=== PATIENT | female | born 1985 | race American Indian/Alaskan Native ===

== ENCOUNTER 2017-03-17 16:27 | Emergency (ER) | payer OTHER ==
[2017-03-17 16:45] VITALS: RESP 16; TEMP 98.6; O2SAT 99; BMI 25.0
--- NOTE | 2017-03-17 17:00 | ED PDOC ---
Arrival/HPI - General Chief Complaint: Trauma Time Seen by Provider: 03/17/17 16:56 Historian: Patient - History of Present Illness Narrative History of Present Illness (Text): 03/17/17 16:59 31 y/o female, no significant pmh, nkda, c/o lower back pain x 2 days. Pt. stated that she was sitting on the stool about 2-3 feets tall, slipped and fall to the lt. buttock region against the wooden floor, been having lt. gluteal pain and lower back/coccyx pain, no hematuria, no vaginal bleeding and no vaginal injury, no chest pain or shortness of breath, no other medical or psychological complaints. Past Medical History - Infectious Disease Hx of Infectious Diseases: None - Psychiatric Hx Substance Use: No Family/Social History - Physician Review Nursing Documentation Reviewed: Yes Family/Social History: Unknown Family HX Smoking Status: Never Smoked Hx Alcohol Use: Yes Frequency of alcohol use: Socially Hx Substance Use: No Allergies/Home Meds Allergies/Adverse Reactions: Allergies No Known Allergies Allergy (Verified 03/17/17 16:58) Review of Systems - Physician Review All systems were reviewed & negative as marked: Yes - Review of Systems Constitutional: absent: Fatigue, Fevers Eyes: absent: Vision Changes ENT: absent: Hearing Changes Respiratory: absent: SOB, Cough Cardiovascular: absent: Chest Pain Musculoskeletal: Arthralgias, Back Pain, Myalgias. absent: Neck Pain, Joint Swelling Skin: absent: Rash, Pruritis, Skin Lesions Neurological: absent: Headache, Dizziness, Focal Weakness Psychiatric: absent: Anxiety, Depression, Suicidal Ideation Physical Exam Vital Signs Reviewed: Yes Vital Signs Temp Pulse Resp BP Pulse Ox 03/17/17 16:42 98.6 F 99 H 16 132/86 99 Temperature: Afebrile Blood Pressure: Normal Pulse: Regular Respiratory Rate: Normal Appearance: Positive for: Well-Appearing, Non-Toxic, Comfortable Pain Distress: Moderate Mental Status: Positive for: Alert and Oriented X 3 - Systems Exam Head: Present: Atraumatic, Normocephalic Pupils: Present: PERRL Extroacular Muscles: Present: EOMI Conjunctiva: Present: Normal Mouth: Present: Moist Mucous Membranes Neck: Present: Normal Range of Motion Respiratory/Chest: Present: Clear to Auscultation, Good Air Exchange. No: Respiratory Distress, Accessory Muscle Use Cardiovascular: Present: Regular Rate and Rhythm, Normal S1, S2. No: Murmurs Abdomen: Present: Normal Bowel Sounds. No: Tenderness, Distention, Peritoneal Signs Back: Present: Other (LS spine: +ttp and swelling lt. laterally to the lt. gluteal muscle and lt. paraspinal coccyx region, no midline tenderness or step off, mild ecchyomsis on the injured site, FROM without limitation, sensation intact, motor 5/5. ). No: CVA Tenderness, Midline Tenderness, Paraspinal Tenderness, Decubitus Ulcer Upper Extremity: Present: Normal Inspection. No: Cyanosis, Edema Lower Extremity: Present: Normal Inspection. No: Edema Neurological: Present: GCS=15, CN II-XII Intact, Speech Normal Skin: Present: Warm, Dry, Normal Color. No: Rashes Psychiatric: Present: Alert, Oriented x 3, Normal Insight, Normal Concentration Medical Decision Making ED Course and Treatment: 03/17/17 16:57 -LS spine xray -toradol IM 03/17/17 18:19 -LS spine xray: No acute displaced fracture identified. If high clinical index of suspicion for fracture suggest CT for further evaluation. -I discussed with the patient about the limitation to the xray, she is very concerning about whether or not she has compression fracture -CT Lumbar spine added. -Case sign out to Dr. Morrison for dispo. If the CT spine show no fracture or subluxation, the patient will be discharge home with the discharge paper and naproxen (written) by me or otherwise needs further evaluation. - RAD Interpretation Radiology Orders: 03/17/17 16:58 LS SPINE WITH OBL > 18 YRS OLD [RAD] Stat 03/17/17 18:01 LUMBAR SPINE W/O CONTRAST [CT] Stat LS spine xray: IMPRESSION: No acute displaced fracture identified. If high clinical index of suspicion for fracture suggest CT for further evaluation. LS spine CT: No acute fracture or subluxation identified. Hog Dropper: Radiologist - Medication Orders Current Medication Orders: Discontinued Medications Ketorolac Tromethamine (Toradol) 60 mg IM STAT STA Stop: 03/17/17 16:59 - PA / DIRECTOR OF SOCIAL WORK / Resident Statement /DO has reviewed & agrees with the documentation as recorded. Disposition/Present on Arrival - Present on Arrival Any Indicators Present on Arrival: No History of DVT/PE: No History of Uncontrolled Diabetes: No Urinary Catheter: No History of Decub. Ulcer: No History Surgical Site Infection Following: None - Disposition Have Diagnosis and Disposition been Completed?: Yes Diagnosis: Accidental fall, Contusion Disposition: HOME/ ROUTINE Disposition Time: 16:58 Patient Plan: Discharge Patient Problems: Current Active Problems Problem Status Onset Accidental fall Acute Contusion Acute Condition: IMPROVED Additional Instructions: -Discharge home with naproxen, cane, ice/heat compression, bed rest, follow up with your own pmd and orthopedic within 2 days, return to the ER for any new or worsening signs or symptoms. Prescriptions: Naproxen 500 mg PO BID PRN #20 tab PRN Reason: Other Referrals: PCP,NO [Primary Care Provider] - Follow up with primary Rylan Case MD [Staff Provider] - Follow up with primary David Mcbride MD [Staff Provider] - Follow up with primary Forms: [employer] (Japanese), WORK NOTE
--- NOTE | 2017-03-17 17:51 | RAD ---
PROCEDURE: Radiographs of the Lumbar Spine. HISTORY: lower back pain s/p fall from the chair COMPARISON: None available. FINDINGS: BONES: Alignment appears satisfactory. No listhesis. No acute displaced fracture identified. DISC SPACES: Unremarkable. OTHER FINDINGS: None. IMPRESSION: No acute displaced fracture identified. If high clinical index of suspicion for fracture suggest CT for further evaluation.
--- NOTE | 2017-03-17 18:38 | CT ---
CT lumbar spine without IV contrast Indication: Lower back pain status post fall from chair Comparison: Lumbar spine radiographs performed earlier the same day Technique: Noncontrast axial images of the lumbar spine were provided. Sagittal and coronal reformatted images were generated and reviewed. This CT exam was performed using 1 or more of the falling dose reduction techniques: Automated exposure control, adjustment of the MAA and/or kV according to patient size, and/or use of iterative reconstruction technique. Total exam DLP: 344.66 MGy-cm Findings: Vertebral body heights appear within normal limits. Alignment appears satisfactory. No acute fracture or subluxation identified. Paraspinal soft tissues appear unremarkable. Limited visualization of the intra-abdominal and intrapelvic contents appear unremarkable. Impression: No acute fracture or subluxation identified.
[2017-03-17 19:00] VITALS: BP 127/82; PULSE 90
== END 2017-03-17 19:04 | disposition home or self-care (01) ==
LOC: ED 16:27
DX: S30.0XXA Contusion of lower back and pelvis, initial encounter (principal); W07.XXXA Fall from chair, initial encounter; Y92.89 Other specified places as the place of occurrence of the external cause
CPT/HCPCS: 72110; 72131; 96372; 99283; J1885